=== PATIENT | male | born 1985 | race Two or more races ===

== ENCOUNTER 2025-03-26 14:22 | Inpatient (IN) | payer MEDICAID, OTHER ==
[~2025-03-26] VITALS: Ht 180.3 cm; Wt 198.4 kg
--- NOTE | 2025-03-26 14:31 | ED.PDOC ---
History of Present Illness HPI Comments 39-year-old male SHORTY with prior medical history of being bed-bound and a chief complaint of diarrhea. EMS report on picking of the patient from for [facility] due from the patient having had diarrhea for the past four days. Patient inform EMS that is staff informed him of having blood in his stool, but does not know. Patient does take Eliquis. Denies any other symptoms at this time. Denies chills, fever, N/V, SOB, CP. No other associated symptoms, modifiers, recent injuries or sick contacts present at this time. Time Seen by MD: 14:00 Reviewed Notes: Nurses Notes, Transit Man Notes, Medications, Allergies Information Source: Patient, Emergency Med Personnel Mode of Arrival: EMS Severity: Moderate Timing: Days Duration: Since onset, Days Prehospital treatment: None Past Medical History Past Medical History (Other): Bed-bound Surgical History: Denies all surgeries Family History Family History: Reviewed,noncontributory to illness, Unknown Social History Smoker: Non-Smoker Alcohol: Denies ETOH Use Drugs: Denies Drug Use Lives In: Home Constitutional: denies: chills, diaphoresis, fatigue, fever, malaise, sweats, weakness, others EENTM: denies: blurred vision, double vision, ear bleeding, ear discharge, ear drainage, ear pain, ear ringing, eye pain, eye redness, hearing loss, mouth pain, mouth swelling, nasal discharge, nose bleeding, nose congestion, nose pain, photophobia, tearing, throat pain, throat swelling, voice changes, others Respiratory: denies: cough, hemoptysis, orthopnea, SOB at rest, shortness of breath, SOB with excertion, stridor, wheezing, others Cardiovascular: denies: chest pain, dizzy spells, diaphoresis, Dyspnea on exertion, edema, irregular heart beat, left arm pain, lightheadedness, palpitations, PND, syncope, others Gastrointestinal: reports: diarrhea; denies: abdomen distended, abdominal pain, blood streaked bowels, constipated, dysphagia, difficulty swallowing, hematemesis, melena, nausea, poor appetite, poor fluid intake, rectal bleeding, rectal pain, vomiting, others Genitourinary: denies: burning, dysuria, flank pain, frequency, hematuria, incontinence, penile discharge, penile sore, pain, testicle pain, testicle swelling, urgency, others Neurological: denies: dizziness, fainting, headache, left sided numbness, left sided weakness, numbness, paresthesia, pre-existing deficit, right sided numbness, right sided weakness, seizure, speech problems, tingling, tremors, weakness, others Musculoskeletal: denies: back pain, gout, joint pain, joint swelling, muscle pain, muscle stiffness, neck pain, others Integumetry: denies: bruises, change in color, change in hair/nails, dryness, laceration, lesions, lumps, rash, wounds, others Allergic/Immunocompromised: denies: Difficulty Healing, Frequent Infections, Hives, Itching, others Hematologic/Lymphatic: denies: anemia, blood clots, easy bleeding, easy bruising, swollen glands, others Endocrine: denies: excessive hunger, excessive sweating, excessive thirst, excessive urination, flushing, intolerance to cold, intolerance to heat, unexplained weight gain, unexplained weight loss, others Psychiatric: denies: anxiety, bipolar disorder, depression, hopeless, panic disorder, schizophrenia, sleepless, suicidal, others All Other Systems: Reviewed and Negative Physical Exam General Appearance: Moderate Distress, Obese HEENT: Normal ENT Inspection, Pharynx Normal, TMs Normal Neck: Full Range of Motion, Non-Tender, Normal, Normal Inspection Respiratory: Chest Non-Tender, Lungs Clear, No Accessory Muscle Use, No Respiratory Distress, Normal Breath Sounds Cardiovascular: No Edema, No JVD, No Murmur, No Gallop, Normal Peripheral Pulses, Regular Rate/Rhythm Breast Exam: Deferred Gastrointestinal: No Organomegaly, Non Tender, No Pulsatile Mass, Normal Bowel Sounds, Soft Genitalia: Deferred Pelvic: Deferred Rectal: Deferred Extremities: No calf tenderness, Normal capillary refill Musculoskeletal : Apperance: Normal Neurologic: Alert, 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 Was a procedure done?: No Differential Dx Considerations may include: Gastroenteritis X-Ray, Labs, Meds, VS Vital Signs Date Time Temp Pulse Resp B/P (MAP) Pulse Ox O2 Delivery O2 Flow Rate FiO2 12/24/25 14:30 97.5 90 18 147/89 96 97.5 Patient alert. Obese. Vitals stable. Answering questions. Saturation pristine on room air. He is bed ridden. Establish intravenous access. Was given fluids. Continue monitoring. Time of 1ST Reevaluation: 14:29 Reevaluation 1ST: Unchanged Patient Education/Counseling: Diagnosis, Treatment, Prognosis Family Education/Counseling: No Family Present SEPSIS Sepsis Screen Physician Orders Complete Blood Count (03/26/25 14:30) Chest Portable (03/26/25 14:30) Urinalysis (03/26/25 14:30) Basic Metabolic Panel (03/26/25 14:30) Vital Signs Date Time Temp Pulse Resp B/P (MAP) Pulse Ox O2 Delivery O2 Flow Rate FiO2 03/26/25 14:30 97.5 90 18 147/89 96 97.5 Departure 1 Departure Time of Disposition: 14:57 Impression: Primary Impression: Nonspecific colitis Disposition: ADMITTED INPATIENT Admit to: Med Surg Condition: Guarded Critical Care Note Critical Care Time?: No Stability Stability form required: No Heart Score Heart Score: Heart Score Response (Comments) Value History N/A 0 EKG N/A 0 Age N/A 0 Risk Factors N/A 0 Troponin N/A 0 Total 0 I personally scribed for GARY GALEANO MD ([email or web address]) on 03/26/25 at 14:31. Electronically submitted by Dieter Kaba ([email or web address]). GARY GALEANO MD Mar 26, 2025 14:31
[2025-03-26 15:02] LABS: Mean Corpuscular Hemoglobin 26.4 pg (28.0-32.0)
[2025-03-26 15:03] LABS: Hematocrit 52.0 % (41.0-53.0); Hemoglobin 17.2 g/dL (13.5-17.5); Mean Corpuscular Volume 79.7 fL (80.0-100.0)
--- NOTE | 2025-03-26 15:13 | DVH ---
EXAM: XY CHEST PORTABLE CLINICAL HISTORY: sob TECHNIQUE: Single AP view of the chest WID: COMPARISON: None FINDINGS: Lines and tubes: None Chest: The heart size and pulmonary vasculature is within normal limits. Limited depth of inspiration. No airspace consolidation, pleural effusion, or or free air. The osseous structures are grossly intact. IMPRESSION: 1. Limited depth of inspiration without acute cardiopulmonary abnormality.
[2025-03-26 15:19] LABS: BUN/Creatinine Ratio 6.2 (10.0-20.0); Glucose 79 mg/dL (74-106)
[2025-03-26 15:28] LABS: Blood Urea Nitrogen 24 mg/dL (9-23); Calcium 8.3 mg/dL (8.7-10.4); Carbon Dioxide 15 mmol/L (20-31)
[2025-03-26 15:41] LABS: Anion Gap 12 (5-15); Chloride 102 mmol/L (98-107); Potassium 3.6 mmol/L (3.5-5.1)
[2025-03-26 15:43] LABS: Sodium 129 mmol/L (136-145)
[2025-03-26 16:19] LABS: Total Cells Counted 100.0 (100)
--- NOTE | 2025-03-26 16:55 | DVHHP2 ---
History of Present Illness HPI 39-year-old male SHORTY with prior medical history of being bed-bound and a chief complaint of diarrhea. EMS report on picking of the patient from for [facility] due from the patient having had diarrhea for the past four days. Patient inform EMS that is staff informed him of having blood in his stool, but does not know. P atient does take Eliquis. Denies any other symptoms at this time. Denies chills, fever, N/V, SOB, CP. No other associated symptoms, modifiers, recent injuries or sick contacts present at this time. H&P Exam Vital Signs Vital Signs Date Time Temp Pulse Resp B/P (MAP) Pulse Ox O2 Delivery O2 Flow Rate FiO2 03/26/25 14:30 97.5 90 18 147/89 96 97.5 SEPSIS Sepsis Screen Date sepsis recognized/suspect: Mar 26, 2025 Time Sepsis recognized/suspect: 1429 Recent Procedure: No On Antibiotic Therapy: No Respiratory Rate >20: No Heart Rate >90: No Temp<36 C (96.8 F) or >38.3 C: No SBP <90 or MAP <65 mmHG: No New Acute Mental Status Change: No Is the patient on CPAP, BIPAP,: No Physician Orders Chest Portable (03/26/25 14:30) Urinalysis (03/26/25 14:30) Admit (03/26/25 16:48) Code Status (03/26/25 16:48) 2 Gm Sodium Diet (03/26/25 Dinner) Hydrocodone-Acet 5/325mg Tab ([place] 5/32 (03/26/25 17:00) Ondansetron Hcl (Zofran) (03/26/25 17:00) Docusate Sodium Capsule (Colace Capsule) (03/26/25 17:00) Enoxaparin Sodium (Lovenox) (03/27/25 10:00) Complete Blood Count (03/27/25 04:00) Comprehensive Metabolic Panel (03/27/25 04:00) Condition: Serious (03/26/25 16:48) Acetaminophen Tablet (Tylenol Tablet) (03/26/25 17:00) Morphine Sulfate Injection (03/26/25 17:00) Nitroglycerin Sublingual (Ntrostat Subli (03/26/25 17:00) Morphine Sulfate Injection (03/26/25 17:00) Stat Ekg For Chest Pain (03/26/25 16:48) Notify Of Changes From Base (03/26/25 16:48) Strategic Planning Specialist For 24 Hours (03/26/25 16:48) Emergency Dysrhythmia Protocol (03/26/25 16:48) Rhythm Strips Once Every Shift (03/26/25 16:48) Oxygen By Nasal Cannula (03/26/25 16:48) Vital Signs Date Time Temp Pulse Resp B/P (MAP) Pulse Ox O2 Delivery O2 Flow Rate FiO2 03/26/25 14:30 97.5 90 18 147/89 96 97.5 Laboratory Tests Test 03/26/25 14:49 White Blood Count 16.8 10^3/uL (4.4-10.8) H Labs/Xrays Labs Test 03/26/25 14:49 Range/Units White Blood Count 16.8 H 4.4-10.8 10^3/uL Red Blood Count 6.52 H 4.5-5.90 10^6/uL Hemoglobin 17.2 13.5-17.5 g/dL Hematocrit 52.0 41.0-53.0 % Mean Corpuscular Volume 79.7 L 80.0-100.0 fL Mean Corpuscular Hemoglobin 26.4 L 28.0-32.0 pg Mean Corpuscular Hemoglobin Concent 33.1 32.0-36.0 g/dL Red Cell Distribution Width 19.6 H 11.8-14.3 % Platelet Count 260 140-450 10^3/uL Mean Platelet Volume 6.7 L 6.9-10.8 fL Neutrophils (%) (Auto) 37.0-80.0 % Lymphocytes (%) (Auto) 10.0-50.0 % Monocytes (%) (Auto) 0.0-12.0 % Eosinophils (%) (Auto) 0.0-7.0 % Basophils (%) (Auto) 0.0-2.0 % Neutrophils # (Auto) 1.6-8.6 10 ^3/uL Lymphocytes # (Auto) 0.4-5.4 10 ^3/uL Monocytes # (Auto) 0-1.3 10 ^3/uL Differential Total Cells Counted 100.0 100 Neutrophils % (Manual) 45 37.0-80.0 Band Neutrophils % (Manual) 7 Lymphocytes % (Manual) 26 10.0-50.0 Monocytes % (Manual) 5 0-12 Eosinophils % (Manual) 17 H 0-7 Basophils % (Manual) 0 0.0-2.0 Metamyelocytes % (manual) 0 Myelocytes % (Manual) 0 Promyelocytes % (Manual) 0 Blast Cells % (Manual) 0 Reactive Lymphocytes 0 Platelet Estimate Adequate Microcytosis Slight Sodium Level 129 L 136-145 mmol/L Potassium Level 3.6 3.5-5.1 mmol/L Chloride Level 102 98-107 mmol/L Carbon Dioxide Level 15 L 20-31 mmol/L Anion Gap 12 5-15 Blood Urea Nitrogen 24 H 9-23 mg/dL Creatinine 3.85 H 0.700-1.30 mg/dL Glomerular Filtration Rate Calc 20 >90 mL/min BUN/Creatinine Ratio 6.2 L 10.0-20.0 Serum Glucose 79 74-106 mg/dL Calcium Level 8.3 L 8.7-10.4 mg/dL Assessment/Plan Primary Diagnosis 39-year-old male BIBA with prior medical history of being bed-bound and a chief complaint of diarrhea. EMS report on picking of the patient from for [facility] due from the patient having had diarrhea for the past four days. Patient inform EMS that is staff informed him of having blood in his stool, but does not know. Patient does take Eliquis. Denies any other symptoms at this time. Denies chills, fever, N/V, SOB, CP. No other associated symptoms, modifiers, recent injuries or sick contacts present at this time. obesity, morbid bacterial gastroenteritis ruling out C-diff intractable diarrhea suspected UTI acute abd pain admitted to med/surg consult to GI if needed empirical iv abx Plan discussed with: Patient CALVIN CAST Mar 26, 2025 16:55
[2025-03-26] MEDS ORDERED: MORPHINE SULFATE INJ 2 MG/ml SYRG IV PRN ×2 (17:00)
[2025-03-26] MEDS ORDERED: DOCUSATE SOD 100 MG CAP PO PRN (17:00)
[2025-03-26] MEDS ORDERED: HYDROcodone-ACET 5/325MG TAB PO PRN (17:00)
[2025-03-26] MEDS ORDERED: ACETAMINOPHEN 325 MG TAB PO PRN (17:00)
[2025-03-26] MEDS ORDERED: NITROGLYCERIN 0.4 MG SL TAB SL PRN (17:00)
--- NOTE | 2025-03-26 19:54 | DVHINCON2 ---
Date of service: Mar 26, 2025 Referring Physician Eamon Broderick MD Reason for Consultation ADRI History of Present Illness Johnny Hinojosa is a 39-year-old male BIBA with prior medical history of being bed-bound with complaint of diarrhea. Patient was brought to the [facility] from [facility] due to patient having had diarrhea for the past four days. Staff also informed EMS of patient having blood in his stool. Patient does take Eliquis. Denies any other symptoms at this time. Denies chills, fever, N/V, SOB, CP. No other associated symptoms, modifiers, recent injuries or sick contacts present at this time. During ED course, Chest x-ray reported limited depth of inspiration without acute cardiopulmonary abnormality. Labs were remarkable for WBC 16.8. Hgb 17.2. Na 129. K wnl. Creatinine 3.85 with BUN of 24. eGFR 20. Patient is admitted under the care of Dr. Broderick. I was asked to consult for management of ADRI. Allergies: Coded Allergies: NO KNOWN ALLERGIES (Unverified , 03/26/25) Current Medications Current Medications Medications (Trade) Dose Ordered Sig/Ainsley Route PRN Reason Start Time Stop Time Status Last Admin Acetaminophen/ Hydrocodone Bitart ([place] 5/325MG Tab) 1 tab Q4HP PRN PO MODERATE PAIN (4-6 PAIN SCALE) 03/26/25 17:00 Ondansetron HCl (Zofran) 4 mg Q4HP PRN IV NAUSEA / VOMITING 03/26/25 17:00 Docusate Sodium (Colace Capsule) 100 mg BIDPRN PRN PO FOR CONSTIPATION 03/26/25 17:00 Enoxaparin Sodium (Lovenox) 40 mg DAILY SC 03/27/25 10:00 03/26/25 21:16 DC Acetaminophen (Tylenol Tablet) 650 mg Q6HP PRN PO PAIN SCALE 1-3 OR TEMP>100.4 03/26/25 17:00 Morphine Sulfate 2 mg Q4HPRN PRN IV SEVERE PAIN (7-10 PAIN SCALE) 03/26/25 17:00 Nitroglycerin (Ntrostat Sublingual) 0.4 mg Q5MINP PRN SL FOR CHEST PAIN 03/26/25 17:00 Morphine Sulfate 2 mg Q30M PRN IV FOR CHEST PAIN 03/26/25 17:00 Enoxaparin Sodium (Lovenox) 30 mg DAILY SC 03/27/25 10:00 Review of Systems Constitutional: denies: chills, diaphoresis, fatigue, fever, malaise, sweats, weakness, others Respiratory: denies: cough, hemoptysis, orthopnea, SOB at rest, shortness of lul ath, SOB with excertion, stridor, wheezing, others Cardiovascular: denies: chest pain, dizzy spells, diaphoresis, Dyspnea on exertion, edema, irregular heart beat, left arm pain, lightheadedness, palpitations, PND, syncope, others Gastrointestinal: reports: diarrhea; denies: abdomen distended, abdominal pain, blood streaked bowels, constipated, dysphagia, difficulty swallowing, hematemesis, melena, nausea, poor appetite, poor fluid intake, rectal bleeding, rectal pain, vomiting, others Genitourinary: denies: burning, dysuria, flank pain, frequency, hematuria, incontinence, penile discharge, penile sore, pain, testicle pain, testicle swelling, urgency, others Neurological: denies: dizziness, fainting, headache, left sided numbness, left sided weakness, numbness, paresthesia, pre-existing deficit, right sided numbness, right sided weakness, seizure, speech problems, tingling, tremors, weakness, others Musculoskeletal: denies: back pain, gout, joint pain, joint swelling, muscle pain, muscle stiffness, neck pain, others Integumetry: denies: bruises, change in color, change in hair/nails, dryness, laceration, lesions, lumps, rash, wounds, others Endocrine: denies: excessive hunger, excessive sweating, excessive thirst, exce ssive urination, flushing, intolerance to cold, intolerance to heat, unexplained weight gain, unexplained weight loss, others Psychiatric: denies: anxiety, bipolar disorder, depression, hopeless, panic disorder, schizophrenia, sleepless, suicidal, others All Other Systems: Reviewed and Negative H&P Exam Vital Signs/I&O Vital Sign Date Time Temp Pulse Resp B/P (MAP) Pulse Ox O2 Delivery O2 Flow Rate FiO2 03/26/25 14:30 97.5 90 18 147/89 96 97.5 Physical Exam Vitals and nursing notes reviewed. General Appearance: Moderate Distress, Obese HEENT: Normal ENT Inspection, Pharynx Normal, TMs Normal Neck: Full Range of Motion, Non-Tender, Normal, Normal Inspection Respiratory: Chest Non-Tender, Lungs Clear, No Accessory Muscle Use, No Respiratory Distress, Normal Breath Sounds Cardiovascular: No Edema, No JVD, No Murmur, No Gallop, Normal Peripheral Pulses, Regular Rate/Rhythm Gastrointestinal: No Organomegaly, Non Tender, No Pulsatile Mass, Normal Bowel Sounds, Soft Extremities: No calf tenderness, Normal capillary refill Musculoskeletal: No extremity deformity. Neurologic: Alert, outreach representative II-XII nml as Tested, No Motor Deficits, Normal Affect Skin: Dry, Normal Color, Warm Labs/Diagnostic Data Labs/Diagnostic Data Laboratory Tests Test 03/26/25 14:49 Range/Units White Blood Count 16.8 H 4.4-10.8 10^3/uL Red Blood Count 6.52 H 4.5-5.90 10^6/uL Hemoglobin 17.2 13.5-17.5 g/dL Hematocrit 52.0 41.0-53.0 % Mean Corpuscular Volume 79.7 L 80.0-100.0 fL Mean Corpuscular Hemoglobin 26.4 L 28.0-32.0 pg Mean Corpuscular Hemoglobin Concent 33.1 32.0-36.0 g/dL Red Cell Distribution Width 19.6 H 11.8-14.3 % Platelet Count 260 140-450 10^3/uL Mean Platelet Volume 6.7 L 6.9-10.8 fL Neutrophils (%) (Auto) 37.0-80.0 % Lymphocytes (%) (Auto) 10.0-50.0 % Monocytes (%) (Auto) 0.0-12.0 % Eosinophils (%) (Auto) 0.0-7.0 % Basophils (%) (Auto) 0.0-2.0 % Neutrophils # (Auto) 1.6-8.6 10 ^3/uL Lymphocytes # (Auto) 0.4-5.4 10 ^3/uL Monocytes # (Auto) 0-1.3 10 ^3/uL Differential Total Cells Counted 100.0 100 Neutrophils % (Manual) 45 37.0-80.0 Band Neutrophils % (Manual) 7 Lymphocytes % (Manual) 26 10.0-50.0 Monocytes % (Manual) 5 0-12 Eosinophils % (Manual) 17 H 0-7 Basophils % (Manual) 0 0.0-2.0 Metamyelocytes % (manual) 0 Myelocytes % (Manual) 0 Promyelocytes % (Manual) 0 Blast Cells % (Manual) 0 Reactive Lymphocytes 0 Platelet Estimate Adequate Microcytosis Slight Sodium Level 129 L 136-145 mmol/L Potassium Level 3.6 3.5-5.1 mmol/L Chloride Level 102 98-107 mmol/L Carbon Dioxide Level 15 L 20-31 mmol/L Anion Gap 12 5-15 Blood Urea Nitrogen 24 H 9-23 mg/dL Creatinine 3.85 H 0.700-1.30 mg/dL Glomerular Filtration Rate Calc 20 >90 mL/min BUN/Creatinine Ratio 6.2 L 10.0-20.0 Serum Glucose 79 74-106 mg/dL Calcium Level 8.3 L 8.7-10.4 mg/dL Assessment Nonspecific colitis ADRI Plan/Recommendation Agreement with your ongoing assessment and plan of care. Daily lab monitoring to include renal function and electrolytes. Electrolyte replacement prn. IV or oral hydration. Pain management prn. Antiemetics with Zofran. DVT prophylaxis with Enoxaparin. Additional plan as per the hospital course. Plan discussed with: Other (RN) NYA GREENE DO Mar 26, 2025 19:54
[2025-03-26 22:24] VITALS: BP 97/70; PULSE 96; RESP 20; TEMP 98.3; O2SAT 92
[2025-03-26 22:35] VITALS: BP 97/70; PULSE 96; RESP 20; TEMP 98.3
[2025-03-27 01:00] VITALS: BP 90/66; PULSE 84; RESP 20; TEMP 97.3; O2SAT 98
[2025-03-27 05:00] VITALS: BP 102/61; PULSE 97; RESP 20; TEMP 97.5; O2SAT 92
[2025-03-27 09:00] VITALS: BP 91/60; PULSE 104; RESP 17; TEMP 97.7; O2SAT 93
[2025-03-27] MEDS ORDERED: ENOXAPARIN SOD 30 MG/0.3 ML SYRINGE SC SCH (10:00)
[2025-03-27] MEDS ORDERED: ENOXAPARIN SOD 40 MG/0.4 ML SYRINGE SC SCH (10:00)
[2025-03-27 11:34] LABS: Hematocrit 56.5 % (41.0-53.0); Hemoglobin 18.5 g/dL (13.5-17.5); Mean Corpuscular Hemoglobin 26.4 pg (28.0-32.0); Mean Corpuscular Volume 80.9 fL (80.0-100.0); Nucleated Red Blood Cells % 1.1 %
[2025-03-27 11:44] LABS: Alanine Aminotransferase 18 U/L (7-40); Albumin 3.5 g/dL (3.2-4.8); Anion Gap 16 (5-15); BUN/Creatinine Ratio 13.0 (10.0-20.0); Chloride 98 mmol/L (98-107); Glucose 80 mg/dL (74-106); Potassium 3.5 mmol/L (3.5-5.1); Total Protein 7.9 g/dL (5.7-8.2)
[2025-03-27 11:48] LABS: Alkaline Phosphatase 118 U/L (46-116); Bilirubin, Total 0.2 mg/dL (0.2-1.0); Blood Urea Nitrogen 55 mg/dL (9-23); Calcium 8.0 mg/dL (8.7-10.4); Carbon Dioxide 15 mmol/L (20-31); Sodium 129 mmol/L (136-145)
[2025-03-27 13:00] VITALS: BP 97/54; PULSE 103; RESP 17; TEMP 97.7; O2SAT 96
[2025-03-27 15:35] LABS: Urine Protein, UAD 1+ (Negative)
[2025-03-27 17:00] VITALS: BP 102/54; PULSE 108; RESP 17; TEMP 98.4; O2SAT 94
[2025-03-27] MEDS: ONDANSETRON HCL 4 MG/2 ML VIAL IV PRN (19:05)
--- NOTE | 2025-03-27 20:00 | DVHPN2 ---
Progress Note - Dictate Date Seen: Mar 27, 2025 Has the PT tested + for MRSA If YES, has PT been informed?: No Medical Necessity Reason Pt with a Central, PICC or Fol: No Subjective Patient was seen and evaluated in follow up. No acute events overnight. Patient denies any pain or discomfort. Lai catheter has been inserted. AM labs are remarkable for Creatinine 4.22 with BUN of 55. eGFR 18. Na 129. K 3.5. vital signs Vital Sign Date Time Temp Pulse Resp B/P (MAP) Pulse Ox O2 Delivery O2 Flow Rate FiO2 03/27/25 17:00 98.4 108 17 102/54 (70) 94 98.4 03/27/25 08:30 Room Air* 0 21 Total Intake and Output 03/26/25 03/26/25 03/27/25 15:00 23:00 07:00 Intake Total 1048 ml Balance 1048 ml medications Current Medications Medications Dose Ordered Sig/Ainsley Route Start Time Stop Time Status Last Admin Dose Admin Acetaminophen/ Hydrocodone Bitart 1 tab Q4HP PRN PO 03/26/25 17:00 Ondansetron HCl 4 mg Q4HP PRN IV 03/26/25 17:00 03/27/25 19:05 4 MG Docusate Sodium 100 mg BIDPRN PRN PO 03/26/25 17:00 Acetaminophen 650 mg Q6HP PRN PO 03/26/25 17:00 Morphine Sulfate 2 mg Q4HPRN PRN IV 03/26/25 17:00 Metronidazole 100 ml @ 100 mls/hr Q8HR IV 03/27/25 14:00 03/27/25 16:26 100 MLS/HR Enoxaparin Sodium 40 mg DAILY SC 03/28/25 10:00 objective Vitals and nursing notes reviewed. General Appearance: Moderate Distress, Obese HEENT: Normal ENT Inspection, Pharynx Normal, TMs Normal Neck: Full Range of Motion, Non-Tender, Normal, Normal Inspection Respiratory: Chest Non-Tender, Lungs Clear, No Accessory Muscle Use, No Respiratory Distress, Normal Breath Sounds Cardiovascular: No Edema, No JVD, No Murmur, No Gallop, Normal Peripheral Pulses, Regular Rate/Rhythm Gastrointestinal: No Organomegaly, Non Tender, No Pulsatile Mass, Normal Bowel Sounds, Soft Extremities: No calf tenderness, Normal capillary refill Musculoskeletal: No extremity deformity. 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 Daily lab monitoring to include renal function and electrolytes. Electrolyte replacement prn. Lai catheter inserted. Strict Intake/Output monitoring. Pain management prn. Antiemetics with Zofran. DVT prophylaxis with Enoxaparin. Additional plan as per the hospital course. Dietary Evaluation Review Comments: Nutrition Recommendation: 1) Ubaldo 1 pk BID, MVI w/ minerals 1 tab daily 2) Monitor PO intake, lab values, weight trend, and I/O Expected Outcomes/Goals: Wound to improve Lab values to improve FU 3-5 days Plan discussed with: Patient, Other (RN) NYA GREENE DO Mar 27, 2025 20:00
[2025-03-27 21:00] VITALS: BP 162/139; PULSE 111; RESP 18; TEMP 97.6; O2SAT 94
[2025-03-28] VITALS (7 sets, daily range): BP systolic 103–141; BP diastolic 60–116; PULSE 77–103; RESP 17–22; TEMP 96.8–97.9; O2SAT 93–96
[2025-03-28] MEDS: ENOXAPARIN SOD 40 MG/0.4 ML SYRINGE SC SCH (09:04)
--- NOTE | 2025-03-28 12:35 | DVHPN2 ---
Progress Note Date Seen: Mar 27, 2025 Has the PT tested + for MRSA If YES, has PT been informed?: No Medical Necessity Reason Pt with a Central, PICC or Fol: No Subjective Review of Systems: HEENT:Normal, CVS:Normal, RESPIRATORY:Normal Objective vital signs Vital Sign Date Time Temp Pulse Resp B/P (MAP) Pulse Ox O2 Delivery O2 Flow Rate FiO2 03/28/25 09:00 97.6 99 17 104/72 (83) 93 97.6 03/28/25 08:30 Room Air* 0 21 Total Intake and Output 03/27/25 03/27/25 03/28/25 15:00 23:00 07:00 Intake Total 932 ml 840 ml Output Total 200 ml Balance 932 ml 640 ml medications Current Medications Medications Dose Ordered Sig/Ainsley Route Start Time Stop Time Status Last Admin Dose Admin Acetaminophen/ Hydrocodone Bitart 1 tab Q4HP PRN PO 03/26/25 17:00 Ondansetron HCl 4 mg Q4HP PRN IV 03/26/25 17:00 03/27/25 19:05 4 MG Docusate Sodium 100 mg BIDPRN PRN PO 03/26/25 17:00 Acetaminophen 650 mg Q6HP PRN PO 03/26/25 17:00 Morphine Sulfate 2 mg Q4HPRN PRN IV 03/26/25 17:00 Metronidazole 100 ml @ 100 mls/hr Q8HR IV 03/27/25 14:00 03/28/25 05:22 100 MLS/HR Enoxaparin Sodium 40 mg DAILY SC 03/28/25 10:00 03/28/25 09:04 40 MG Hydralazine HCl 10 mg Q6HP PRN PO 03/27/25 21:45 03/27/25 22:03 10 MG Examination: GENERAL:Normal, HEENT:Normal, NECK:Normal, LUNGS:Normal laboratory and microbiology Laboratory Tests 03/27/25 10:43 Test 03/27/25 10:43 Range/Units Serum Glucose 80 74-106 mg/dL Labs and/or images reviewed: Labs reviewed by me, Image(s) reviewed by me Problem List/Assessment/Plan Problem List/Assessment/Plan 39-year-old male BIBA with prior medical history of being bed-bound and a chief complaint of diarrhea. EMS report on picking of the patient from [facility] due from the patient having had diarrhea for the past four days. Patient inform EMS that is staff informed him of having blood in his stool, but does not know. Patient does take Eliquis. Denies any other symptoms at this time. Denies chills, fever, N/V, SOB, CP. No other associated symptoms, modifiers, recent injuries or sick contacts present at this time. obesity, morbid bacterial gastroenteritis ruling out C-diff intractable diarrhea suspected UTI acute abd pain acute kidney injury/ATN it the setting of sepsis admitted to med/surg consult to GI if needed empirical iv abx Plan discussed with: Patient My Orders My Orders Orders - CALVIN CAST DO Procedure Category Date Status Time Mrsa Screen TEMI 03/26/25 Logged 23:10 Clostridium Difficile TEMI 03/27/25 In Process Toxin 13:00 Enoxaparin Sodium PHA 03/28/25 In Process (Lovenox) 10:00 Hydralazine Hcl PHA 03/27/25 In Process Tablet (Apresoline 21:45 Mrsa Screen TEMI 03/27/25 In Process 23:20 Ceftriaxone 1gm/50ml PHA 03/29/25 Logged (Rocephin) 09:00 Loperamide Capsule PHA 03/28/25 Logged (Imodium Capsule) 14:00 Dietary Evaluation Review Comments: Nutrition Recommendation: 1) Ubaldo 1 pk BID, MVI w/ minerals 1 tab daily 2) Monitor PO intake, lab values, weight trend, and I/O Expected Outcomes/Goals: Wound to improve Lab values to improve FU 3-5 days CALVIN CAST DO Mar 28, 2025 12:35
--- NOTE | 2025-03-28 12:36 | DVHPN2 ---
Progress Note Date Seen: Mar 28, 2025 Has the PT tested + for MRSA If YES, has PT been informed?: No Medical Necessity Reason Pt with a Central, PICC or Fol: No Objective vital signs Vital Sign Date Time Temp Pulse Resp B/P (MAP) Pulse Ox O2 Delivery O2 Flow Rate FiO2 03/28/25 09:00 97.6 99 17 104/72 (83) 93 97.6 03/28/25 08:30 Room Air* 0 21 Total Intake and Output 03/27/25 03/27/25 03/28/25 15:00 23:00 07:00 Intake Total 932 ml 840 ml Output Total 200 ml Balance 932 ml 640 ml medications Current Medications Medications Dose Ordered Sig/Ainsley Route Start Time Stop Time Status Last Admin Dose Admin Acetaminophen/ Hydrocodone Bitart 1 tab Q4HP PRN PO 03/26/25 17:00 Ondansetron HCl 4 mg Q4HP PRN IV 03/26/25 17:00 03/27/25 19:05 4 MG Docusate Sodium 100 mg BIDPRN PRN PO 03/26/25 17:00 Acetaminophen 650 mg Q6HP PRN PO 03/26/25 17:00 Morphine Sulfate 2 mg Q4HPRN PRN IV 03/26/25 17:00 Metronidazole 100 ml @ 100 mls/hr Q8HR IV 03/27/25 14:00 03/28/25 05:22 100 MLS/HR Enoxaparin Sodium 40 mg DAILY SC 03/28/25 10:00 03/28/25 09:04 40 MG Hydralazine HCl 10 mg Q6HP PRN PO 03/27/25 21:45 03/27/25 22:03 10 MG Examination: GENERAL:Normal laboratory and microbiology Laboratory Tests 03/27/25 10:43 Test 03/27/25 10:43 Range/Units Serum Glucose 80 74-106 mg/dL Problem List/Assessment/Plan Problem List/Assessment/Plan 39-year-old male BIBA with prior medical history of being bed-bound and a chief complaint of diarrhea. EMS report on picking of the patient from for most due from the patient having had diarrhea for the past four days. Patient inform EMS that is staff informed him of having blood in his stool, but does not know. Patient does take Eliquis. Denies any other symptoms at this time. Denies chills, fever, N/V, SOB, CP. No other associated symptoms, modifiers, recent injuries or sick contacts present at this time. obesity, morbid bacterial gastroenteritis ruling out C-diff intractable diarrhea suspected UTI acute abd pain acute kidney injury/ATN it the setting of sepsis admitted to med/surg consult to GI if needed empirical iv abx Plan discussed with: Patient My Orders My Orders Orders - CALVIN CAST DO Procedure Category Date Status Time Mrsa Screen TEMI 03/26/25 Logged 23:10 Clostridium Difficile TEMI 03/27/25 In Process Toxin 13:00 Enoxaparin Sodium PHA 03/28/25 In Process (Lovenox) 10:00 Hydralazine Hcl PHA 03/27/25 In Process Tablet (Apresoline 21:45 Mrsa Screen TEMI 03/27/25 In Process 23:20 Ceftriaxone 1gm/50ml PHA 03/29/25 Logged (Rocephin) 09:00 Loperamide Capsule PHA 03/28/25 Logged (Imodium Capsule) 14:00 Dietary Evaluation Review Comments: Nutrition Recommendation: 1) Ubaldo 1 pk BID, MVI w/ minerals 1 tab daily 2) Monitor PO intake, lab values, weight trend, and I/O Expected Outcomes/Goals: Wound to improve Lab values to improve FU 3-5 days CALVIN CAST DO Mar 28, 2025 12:36
[2025-03-28] MEDS: LOPERAMIDE HCL 2 MG CAP/TAB PO SCH (13:45)
[2025-03-28] MEDS: MUPIROCIN 2% OINT 15gm or 22gm FOR MRSA NARES EACHNOSTRI SCH (21:43)
[2025-03-29] VITALS (8 sets, daily range): BP systolic 81–126; BP diastolic 43–67; PULSE 77–100; RESP 18–21; TEMP 97.4–98.2; O2SAT 91–95
[2025-03-29 06:48] LABS: Nucleated Red Blood Cells % 0.5 %
[2025-03-29 06:49] LABS: Hematocrit 45.7 % (41.0-53.0); Hemoglobin 15.6 g/dL (13.5-17.5); Mean Corpuscular Hemoglobin 26.8 pg (28.0-32.0); Mean Corpuscular Volume 78.5 fL (80.0-100.0)
[2025-03-29 07:04] LABS: Alanine Aminotransferase < 9 U/L (7-40); Albumin 3.3 g/dL (3.2-4.8); Alkaline Phosphatase 108 U/L (46-116); Anion Gap 15 (5-15); BUN/Creatinine Ratio 8.9 (10.0-20.0); Blood Urea Nitrogen 34 mg/dL (9-23); Calcium 7.6 mg/dL (8.7-10.4); Carbon Dioxide 14 mmol/L (20-31); Chloride 98 mmol/L (98-107); Glucose 89 mg/dL (74-106); Potassium 3.2 mmol/L (3.5-5.1); Sodium 127 mmol/L (136-145); Total Protein 7.7 g/dL (5.7-8.2)
[2025-03-29 07:13] LABS: Bilirubin, Total 0.2 mg/dL (0.2-1.0)
[2025-03-30] VITALS (9 sets, daily range): BP systolic 87–111; BP diastolic 49–63; PULSE 93–107; RESP 18–20; TEMP 97.2–98.4; O2SAT 91–95
--- NOTE | 2025-03-30 13:20 | DVHPN2 ---
Progress Note Date Seen: Mar 29, 2025 Has the PT tested + for MRSA If YES, has PT been informed?: No Medical Necessity Reason Pt with a Central, PICC or Fol: No Objective vital signs Vital Sign Date Time Temp Pulse Resp B/P (MAP) Pulse Ox O2 Delivery O2 Flow Rate FiO2 03/30/25 09:00 97.8 96 18 87/52 (64) 94 97.8 03/30/25 08:00 Room Air* 0 21 Total Intake and Output 03/29/25 03/29/25 03/30/25 15:00 23:00 07:00 Intake Total 950 ml 1800 ml Output Total 1800 ml 2500 ml Balance -850 ml -700 ml medications Current Medications Medications Dose Ordered Sig/Ainsley Route Start Time Stop Time Status Last Admin Dose Admin Acetaminophen/ Hydrocodone Bitart 1 tab Q4HP PRN PO 03/26/25 17:00 Ondansetron HCl 4 mg Q4HP PRN IV 03/26/25 17:00 03/27/25 19:05 4 MG Docusate Sodium 100 mg BIDPRN PRN PO 03/26/25 17:00 Acetaminophen 650 mg Q6HP PRN PO 03/26/25 17:00 Morphine Sulfate 2 mg Q4HPRN PRN IV 03/26/25 17:00 Metronidazole 100 ml @ 100 mls/hr Q8HR IV 03/27/25 14:00 03/30/25 05:09 100 MLS/HR Enoxaparin Sodium 40 mg DAILY SC 03/28/25 10:00 03/30/25 08:36 40 MG Hydralazine HCl 10 mg Q6HP PRN PO 03/27/25 21:45 03/27/25 22:03 10 MG Ceftriaxone Sodium 50 ml @ 100 mls/hr DAILY@09 IV 03/28/25 13:00 03/30/25 08:36 100 MLS/HR Mupirocin 1 applic BID EACHNOSTRI 03/28/25 22:00 04/02/25 21:59 03/30/25 08:36 1 APPLIC laboratory and microbiology Laboratory Tests 03/29/25 06:25 Test 03/29/25 06:25 Range/Units Serum Glucose 89 74-106 mg/dL Microbiology Date/Time Source Procedure Growth Status 03/28/25 04:50 Nose MRSA Screen - Final Methicillin Resistant S.aureus Complete 03/27/25 08:30 Stool Clostridium difficile Toxin Assay - Final Complete Problem List/Assessment/Plan Problem List/Assessment/Plan 39-year-old male BIBA with prior medical history of being bed-bound and a chief complaint of diarrhea. EMS report on picking of the patient from for most due from the patient having had diarrhea for the past four days. Patient inform EMS that is staff informed him of having blood in his stool, but does not know. Patient does take Eliquis. Denies any other symptoms at this time. Denies chills, fever, N/V, SOB, CP. No other associated symptoms, modifiers, recent injuries or sick contacts present at this time. obesity, morbid bacterial gastroenteritis ruling out C-diff intractable diarrhea acute UTI acute abd pain acute kidney injury/ATN it the setting of sepsis diarrhea improving possible d/c in 24 hours Plan discussed with: Patient My Orders My Orders Orders - CALVIN CAST DO Procedure Category Date Status Time Apply Z-Guard JEFFREY 03/30/25 In Process 07:00 * Aircraft Engine Technician CONS 03/30/25 Transmitted Consult Discharge DISCHARGE 03/30/25 Verified 13:18 Dietary Evaluation Review Comments: Nutrition Recommendation: 1) Ubaldo 1 pk BID, MVI w/ minerals 1 tab daily 2) Monitor PO intake, lab values, weight trend, and I/O Expected Outcomes/Goals: Wound to improve Lab values to improve FU 3-5 days CALVIN CAST DO Mar 30, 2025 13:20
--- NOTE | 2025-03-30 13:21 | DVHDS2 ---
Discharge Summary Date of Admission Mar 26, 2025 at 16:48 Date of Discharge: Mar 30, 2025 Labs/Diagnostic Data: Laboratory Results Test 03/29/25 06:25 03/27/25 14:50 03/26/25 14:49 White Blood Count 15.1 10^3/uL (4.4-10.8) Red Blood Count 5.82 10^6/uL (4.5-5.90) Hemoglobin 15.6 g/dL (13.5-17.5) Hematocrit 45.7 % (41.0-53.0) Mean Corpuscular Volume 78.5 fL (80.0-100.0) Mean Corpuscular Hemoglobin 26.8 pg (28.0-32.0) Mean Corpuscular Hemoglobin Concent 34.1 g/dL (32.0-36.0) Red Cell Distribution Width 19.2 % (11.8-14.3) Platelet Count 213 10^3/uL (140-450) Mean Platelet Volume 6.7 fL (6.9-10.8) Neutrophils (%) (Auto) 65.9 % (37.0-80.0) Lymphocytes (%) (Auto) 19.0 % (10.0-50.0) Monocytes (%) (Auto) 6.6 % (0.0-12.0) Eosinophils (%) (Auto) 7.9 % (0.0-7.0) Basophils (%) (Auto) 0.6 % (0.0-2.0) Neutrophils # (Auto) 9.9 10 ^3/uL (1.6-8.6) Lymphocytes # (Auto) 2.9 10 ^3/uL (0.4-5.4) Monocytes # (Auto) 1.0 10 ^3/uL (0-1.3) Eosinophils # (Auto) 1.2 10 ^3/uL (0-0.8) Basophils # (Auto) 0.1 10 ^3/uL (0-0.2) Nucleated Red Blood Cells 0.5 % Sodium Level 127 mmol/L (136-145) Potassium Level 3.2 mmol/L (3.5-5.1) Chloride Level 98 mmol/L (98-107) Carbon Dioxide Level 14 mmol/L (20-31) Anion Gap 15 (5-15) Blood Urea Nitrogen 34 mg/dL (9-23) Creatinine 3.84 mg/dL (0.700-1.30) Glomerular Filtration Rate Calc 20 mL/min (>90) BUN/Creatinine Ratio 8.9 (10.0-20.0) Serum Glucose 89 mg/dL (74-106) Calcium Level 7.6 mg/dL (8.7-10.4) Total Bilirubin 0.2 mg/dL (0.2-1.0) Aspartate Amino Transferase (AST) < 8 U/L (13-40) Alanine Aminotransferase (ALT) < 9 U/L (7-40) Alkaline Phosphatase 108 U/L (46-116) Total Protein 7.7 g/dL (5.7-8.2) Albumin 3.3 g/dL (3.2-4.8) Urine Color Yellow (Yellow) Urine Clarity Hazy (Clear) Urine pH 5.5 (5.0-9.0) Urine Specific [place] 1.018 (1.001-1.035) Urine Protein 1+ (Negative) Urine Ketones Trace (Negative) Urine Blood 1+ /uL (Negative) Urine Nitrite Negative (Negative) Urine Bilirubin 1+ (Negative) Urine Urobilinogen 2 mg/dL (Negative) Urine Leukocyte Esterase 3+ /uL (Negative) Urine RBC 5 /hpf (0 - 3) Urine Microscopic WBC 102 /HPF (0-3) Urine Squamous Epithelial Cells Few /hpf (<5) Urine Bacteria Few /hpf (None Seen) Urine Hyaline Casts Few /lpf (0 - 2) Urine Glucose Normal mg/dL (Normal) Differential Total Cells Counted 100.0 (100) Neutrophils % (Manual) 45 (37.0-80.0) Band Neutrophils % (Manual) 7 Lymphocytes % (Manual) 26 (10.0-50.0) Monocytes % (Manual) 5 (0-12) Eosinophils % (Manual) 17 (0-7) Basophils % (Manual) 0 (0.0-2.0) Metamyelocytes % (manual) 0 Myelocytes % (Manual) 0 Promyelocytes % (Manual) 0 Blast Cells % (Manual) 0 Reactive Lymphocytes 0 Platelet Estimate Adequate Microcytosis Slight Other Laboratory Tests 03/29/25 06:25 Brief Hx & Hospital Course: 39-year-old male SHORTY with prior medical history of being bed-bound and a chief complaint of diarrhea. EMS report on picking of the patient from for most due from the patient having had diarrhea for the past four days. Patient inform EMS that is staff informed him of having blood in his stool, but does not know. Patient does take Eliquis. Denies any other symptoms at this time. Denies chills, fever, N/V, SOB, CP. No other associated symptoms, modifiers, recent injuries or sick contacts present at this time. obesity, morbid bacterial gastroenteritis ruling out C-diff intractable diarrhea acute UTI acute abd pain acute kidney injury/ATN it the setting of sepsis diarrhea improving discharged back to [facility] Condition at Discharge: Fair Final Diagnosis/Problems List bactereial gastroenteritis Discharge Disposition: Assisted Living Facility Discharge Instruct/Medications Diet: Cardiac 2g Na,low cholest Activity: No Restrictions, As Tolerated Discharge Statement: "Patient was advised to return to the ER or call 911 if any headaches, dizziness, shortness of breath, chest pain, abdominal pain, bleeding, fevers, or worsening of medical condition. Patient was counseled about treatment plan, medications, possible side effects, patientverbalized understanding. All questions were answered to the best of my ability. This discharge took greater then 30 minutes in planning, reviewing documentation, counseling the patient, and discussing with other team members." ASSESSMENT ASSESSMENT Assessment bactereial gastroenteritis CALVIN CAST DO Mar 30, 2025 13:21
[2025-03-31 01:10] VITALS: BP 108/53; PULSE 67; RESP 18; TEMP 97.6; O2SAT 93
[2025-03-31 04:35] VITALS: BP 118/74; PULSE 81; RESP 18; TEMP 97.4; O2SAT 96
[2025-03-31 08:32] VITALS: BP 111/53; PULSE 97; RESP 20; TEMP 97.6; O2SAT 93
[2025-03-31 12:32] VITALS: BP 111/65; PULSE 99; RESP 20; TEMP 97.1; O2SAT 92
[2025-03-31 16:58] VITALS: BP 117/66; PULSE 90; RESP 20; TEMP 97.1; O2SAT 94
== END 2025-03-31 17:07 | disposition home or self-care (01) | DRG 720 ==
LOC: EDBD 14:22 → ER 14:22 → OVERFLOW 16:48 → WEST WING 21:43
PROVIDERS: ADMIT Internal Medicine; ATTEND Internal Medicine
DX: A41.9 Sepsis, unspecified organism (principal); N17.0 Acute kidney failure with tubular necrosis; A04.9 Bacterial intestinal infection, unspecified; N39.0 Urinary tract infection, site not specified; E66.01 Morbid (severe) obesity due to excess calories; Z74.01 Bed confinement status; Z68.22 Body mass index [BMI] 22.0-22.9, adult
CPT/HCPCS: 36415; 71045; 80048; 80053; 81001; 85007; 85025; 85027; 87081; 87493; G0378; J2405; J3490